=== PATIENT | female | born 1965 | race African-American/Black ===

== ENCOUNTER 2016-07-31 10:54 | Inpatient (IN) ==
[2016-07-31] MEDS ORDERED: PANTOPRAZOLE 40 MG VIAL IV STA (11:45)
[2016-07-31] MEDS ORDERED: ONDANSETRON 4 MG/2 ML VIAL IV STA (11:45)
[2016-07-31] MEDS ORDERED: METOCLOPRAMIDE 10 MG/2 ML VIAL IV STA (11:45)
--- NOTE | 2016-07-31 11:50 | Emergency Department Note ---
Arrival - Arrival Chief Complaint: Abdominal / Flank Pain Stated Complaint: pain in Right arm and down Right side ED Nursing Triage Note: C/O HAVING GENERALIZED ABDOMEN PAIN X 2 DAYS., STATES TOOK SOME GAS EX WITH NO RELEIF, DENIES HAVING NAUSEA., DENIES HAVING DIARRHEA, DENIES HAVING INCREASE TEMP Mode of Arrival: Ambulatory Limitations: Altered Mental Status Source: Family Time Seen by Provider: 07/31/16 11:41 - History of Present Illness HPI Narrative: This 51-year-old black female with MR presents with a 2 day history of mid epigastric and right upper quadrant abdominal pain radiating to the right shoulder and back associated with heartburn, belching, and water brash. She denies nausea, vomiting, chills, or fever. Per the family she does not have a history of gallbladder disease, peptic ulcer disease, pancreatitis, or inflammatory bowel disease. Currently the patient appears in no acute distress. Onset (ago): day(s) (patient presents 2 days post-onset of symptoms) Consistency: constant Severity: mild Severity scale (1-10): 3 Quality: burning Allergies/Adverse Reactions: Allergies Allergy/AdvReac Type Severity Reaction Status Date / Time No Known Allergies Allergy Verified 07/31/16 11:08 Home Medications: Home Medications Medication Instructions Recorded Confirmed Type Insulin Aspart [NovoLOG] 15 unit SUBCUT BIDPC 09/03/15 07/31/16 History Insulin Glargine,Hum.rec.anlog 40 unit SUBCUT BEDTIME 09/03/15 07/31/16 History [Lantus SoloStar] Losartan/Hydrochlorothiazide 1 tablet PO DAILY 07/31/16 07/31/16 History [Losartan-Hctz 100-25 mg Tab] Review of System - Review of System 12 point system: reviewed and no additional remarkable complaints except as stated - Review of System Constitutional: Present: as per HPI Gastrointestinal: Present: as per HPI Medical,Surgical,& Family Hx - Medical History Cardio: History of: Hypertension Endocrine: History of: Diabetes Mellitus (IDDM), Diabetes Mellitus (NIDDM), Dyslipidemia - Social History Smoking Status: Never smoker Frequency of Alcohol Use: None Type of Drug Use: None Exam Physical Examination: GENERAL: Obese black female in no acute distress. HEENT: Normocephalic. No trauma. Moist mucous membranes. EOMI. PERRLA. NECK: Supple. No adenopathy. CARDIAC: Regular. No murmurs. CHEST: Clear to auscultation. No respiratory distress. ABDOMEN: Soft. Very tender right upper quadrant and midepigastrium.. Hypoactive bowel sounds. EXTREMITIES: No trauma. Normal ROM. No pedal edema. SKIN: No diaphoresis. No rash. NEURO: Alert. Neuro intact. No focal deficits. Vital Signs: Vital Signs Temperature 97.7 F 07/31/16 11:04 Pulse Rate 90 07/31/16 11:04 Respiratory Rate 16 07/31/16 11:04 Blood Pressure 186/111 07/31/16 11:04 O2 Sat by Pulse Oximetry 96 07/31/16 11:04 Course - Reevaluation(s) Reevaluation #1: Advised family the need for hospitalization to delineate what is going on in the liver. - Consultations Consultation #1: Discussed with the hospitalist service who will admit for further evaluation and treatment Results - Labs CBC & BMP: 07/31/16 12:00 07/31/16 12:00 Labs: I reviewed the laboratory and noted the significantly elevated liver function studies - Diagnostic Findings Procedure: CT Abdomen and Pelvis: image reviewed by me, report reviewed by me ( paperweight 8 cm posterior lobe mass which possibly could be focal nodular hyperplasia no evidence of adenopathy in the abdominal cavity otherwise), Ultrasound: image reviewed by me, report reviewed by me (abdominal ultrasound reveals no abnormalities including gallstones.) Disposition Clinical Impression: liver mass Case discussed with: patient's family Disposition: Still a Patient Condition: Stable Time of Disposition: 14:51
[2016-07-31] MEDS ORDERED: METOCLOPRAMIDE 10 MG/2 ML VIAL ONE (11:57)
[2016-07-31] MEDS ORDERED: ONDANSETRON 4 MG/2 ML VIAL ONE (11:58)
[2016-07-31] MEDS ORDERED: PANTOPRAZOLE 40 MG VIAL IV ONE (11:58)
[2016-07-31 12:22] LABS: Basophils % 0.4 % (0.0-0.8); Eosinophils # 0.2 10*3/uL (0.0-0.87); Eosinophils % 2.5 % (0.00-10.9); Hematocrit 43.2 VOL% (35.7-47.0); Hemoglobin 13.4 GM/DL (12.0-16.0); Immature Granulocytes % 0.7 %; Immature Granulocytes Absolute 0.05 #; Lymphocytes # 2.6 10*3/uL (1.4-4.0); Mean Corpuscular Hemoglobin 27 PG (27-34); Mean Corpuscular Volume 88.2 FL (87-102); Mean Platelet Volume 10.2 FL (9.6-12.0); Monocytes # 0.5 10*3/uL (0.11-0.8); Monocytes % 7.4 % (1.7-12.7); Neutrophils # 3.9 10*3/uL (1.4-7.4); Platelet Count 260 T/CUMM (130-400); Red Cell Distribution Width 13.7 % (9.3-17.3); White Blood Count 7.3 T/CUMM (4-12)
[2016-07-31 12:54] LABS: Albumin 3.7 G/DL (3.4-5.0); Bilirubin,Total 0.4 MG/DL (0.2-1.0); Calcium 9.8 MG/DL (8.5-10.1); Osmolality,Calculated 289.6 MOS/KG (273-304); Potassium 3.8 MMOL/L (3.5-5.1); Total Protein 7.4 G/DL (6.4-8.3)
--- NOTE | 2016-07-31 13:17 | Ultrasound Report ---
History: Abdominal pain Date: 07/31/2016 Study: Abdominal ultrasound limited to the right upper quadrant Comparison exam: No previous Real-time ultrasound images were captured and archived. The gallbladder is normal in appearance without gallstones or abnormal pericholecystic fluid. There is no gallbladder wall thickening on the static images. There is a negative sonographic Key sign. There is no abnormal biliary dilatation. The common bile duct measures 3.3 mm diameter. The liver, pancreas, and right kidney are normal. The liver measures 13.6 cm in length. The right kidney measures 12.3 cm length. There is hepatopedal flow in the portal vein. Impression: Normal right upper quadrant ultrasound PROCEDURE INTERPRETED AT [facility] DEPARTMENT OF RADIOLOGY Final Report Signed by: Dr. Serenity Patel
--- NOTE | 2016-07-31 14:15 | CT Report ---
History: Abnormal liver function tests. Right upper quadrant abdominal pain. Normal right upper quadrant ULTRASOUND Date: 07/31/2016 Study: CT abdomen and pelvis with IV contrast Comparison exam: No previous abdominal CT Technique: Spiral CT sections were obtained from the lung bases to the pubic symphysis following 100 mL Omnipaque 350 IV. Total DLP measures 2133 mGy*cm. CT abdomen: There is some minor strandy subsegmental atelectasis in the lung bases. There is an 8.8 cm lobular mass posteriorly and superiorly in the right lobe of the liver. This has a central hypodense scar compatible with focal nodular hyperplasia. There is some homogeneous enhancement of this mass otherwise. The liver is otherwise unremarkable except for some mild diffuse fatty infiltration. The gallbladder, bile ducts, spleen, pancreas, adrenal glands, and kidneys are unremarkable. There is bilateral renal excretion without hydronephrosis. There is no aortic aneurysm. The appendix is normal. There is no bowel obstruction. There is no evidence of pneumoperitoneum. There is no lymphadenopathy in the upper abdomen. CT pelvis: There is a hypodense lobular mass measuring 5.9 cm in the fundus of the uterus, extending into the cornual region. There is no abnormal fluid collection or additional pelvic mass. There is no pelvic lymphadenopathy. There is diverticulosis of the colon without lidia diverticulitis. There is a small periumbilical hernia containing fat. Impression: 8.8 cm hepatic mass suggesting focal nodular hyperplasia. 5.9 cm uterine mass, likely uterine leiomyoma. Diverticulosis without lidia diverticulitis PROCEDURE INTERPRETED AT [facility] DEPARTMENT OF RADIOLOGY Final Report Signed by: Dr. Serenity Patel
[2016-07-31] MEDS ORDERED: DEXTROSE 50% 25 GM/50 ML VIAL IV PRN (15:57)
[2016-07-31] MEDS ORDERED: BISACODYL 5 MG TABLET PO PRN (15:57)
[2016-07-31] MEDS ORDERED: ONDANSETRON 4 MG/2 ML VIAL IV PRN (15:57)
[2016-07-31] MEDS ORDERED: ACETAMINOPHEN 325 MG TABLET PO PRN (15:57)
[2016-07-31] MEDS ORDERED: ZALEPLON 5 MG CAPSULE PO PRN (15:57)
[2016-07-31] MEDS ORDERED: GLUCAGON 1 MG VIAL IM PRN (15:57)
--- NOTE | 2016-07-31 16:13 | Hospitalist History & Physical ---
Assessment and Plan - Time spent with patient Time spent with patient: Greater than 30 minutes (1) Liver mass Status: Acute Assessment and plan: CT is compatible with nodular hyperplasia. I will obtain GI consultation. Current Visit: Yes (2) Leiomyoma of body of uterus Status: Acute Assessment and plan: No further evaluation at this time. Current Visit: Yes (3) Diabetes mellitus type 1 Status: Acute Assessment and plan: I will continue her glargine and regular insulin. Current Visit: Yes Qualifiers: Diabetes mellitus complication status: without complication Qualified Code( s): E10.9 - Type 1 diabetes mellitus without complications (4) Hypertension Status: Acute Assessment and plan: I will continue her losartan and hydrochlorthiazide. Current Visit: Yes History of Present Illness Chief complaint: Abdominal pain History of present illness: Ms. Sheikh is a 51 year old female with a 1-2 week history of abdominal pain. She describes the pain as a right sided aching pain that has been present constantly for this time period. She has not been experiencing nausea, vomiting , diarrhea, constipation, weight loss, or fevers. Evaluation in the ED included a CT scan of the abdomen and pelvis demonstrating a large liver mass compatible with nodular hyperplasia and a leiomyoma of the uterus and an abdominal US demonstrating a normal gallbladder and normal pancreas. She is admitted for further evaluation and treatment. Home Medications Medication Instructions Recorded Confirmed Type Insulin Aspart [NovoLOG] 15 unit SUBCUT BIDPC 09/03/15 07/31/16 History Insulin Glargine,Hum.rec.anlog 40 unit SUBCUT BEDTIME 09/03/15 07/31/16 History [Lantus SoloStar] Losartan/Hydrochlorothiazide 1 tablet PO DAILY 07/31/16 07/31/16 History [Losartan-Hctz 100-25 mg Tab] Allergies Allergy/AdvReac Type Severity Reaction Status Date / Time No Known Allergies Allergy Verified 07/31/16 11:08 Medical,Surgical,& Family Hx - Medical History Cardio: History of: Hypertension Endocrine: History of: Diabetes Mellitus (IDDM), Diabetes Mellitus (NIDDM), Dyslipidemia - Social History Smoking Status: Never smoker Frequency of Alcohol Use: None Type of Drug Use: None Exam - Constitutional Vitals: Period Temp Pulse Resp BP Sys/Weiss Pulse Ox Last 24 Hr 97.7 F 90 16 186/111 96 General appearance: no acute distress - Head Head exam: Present: normal inspection - Eye Pupils: Present: [place] - Neck Neck exam: Present: normal inspection - Respiratory Respiratory exam: Present: clear to auscultation bilaterally - Cardiovascular Cardiovascular exam: Present: regular rate and rhythm - GI/Abdominal GI/Abdominal exam: Present: normal bowel sounds, soft, other (nontender, no palpable masses) - Extremities Exam Extremities exam: Present: normal inspection - Neurological Exam Neurological exam: Present: alert, oriented X3, CN II-XII intact, other (no gross motor or sensory deficits) - Skin Skin exam: Present: normal color Results - Labs CBC & BMP: 07/31/16 12:00 07/31/16 12:00 - Diagnostic Findings Procedure: CT Abdomen and Pelvis: report reviewed by me, other (large liver mass c/w nodular hyperplasia and leiomyoma of uterus), Ultrasound: report reviewed by me (normal GB and pancreas)
[2016-07-31] MEDS: INSULIN REGULAR 100 UNIT/ML SUBCUT SCH ×2 (17:50→20:58)
[2016-07-31] MEDS: ENOXAPARIN 40 MG/0.4 ML SYRINGE SUBCUT SCH (18:02)
[2016-07-31] MEDS: INSULIN LISPRO 100 UNIT/ML SUBCUT SCH (18:03)
[2016-07-31] MEDS: INSULIN GLARGINE 100 UNIT/ML SUBCUT SCH (20:58)
--- NOTE | 2016-08-01 07:50 | Hospitalist Progress Note ---
Assessment and Plan (1) Liver mass Status: Acute Assessment and plan: CT is compatible with nodular hyperplasia. GI consult is pending. I will follow GI's recommendations if they think she needs further evaluation. Current Visit: Yes (2) Leiomyoma of body of uterus Status: Acute Assessment and plan: No further evaluation at this time. Current Visit: Yes (3) Diabetes mellitus type 1 Status: Acute Assessment and plan: I will continue her glargine and regular insulin. Her glucose is well controlled on her present regimen. Current Visit: Yes Qualifiers: Diabetes mellitus complication status: without complication Qualified Code( s): E10.9 - Type 1 diabetes mellitus without complications (4) Hypertension Status: Acute Assessment and plan: I will continue her losartan and hydrochlorthiazide. Her BP is well controlled on her present medications. Current Visit: Yes Hospitalist: Subjective Interval history: No new complaints. Exam - Constitutional Vitals: Period Temp Pulse Resp BP Sys/Weiss Pulse Ox Last 24 Hr 97.1 F-97.9 F 83-88 18-20 96-156/64-99 93-98 General appearance: no acute distress - Head Head exam: Present: normal inspection - Neck Neck exam: Present: normal inspection - Respiratory Respiratory exam: Present: clear to auscultation bilaterally - Cardiovascular Cardiovascular exam: Present: regular rate and rhythm - GI/Abdominal GI/Abdominal exam: Present: normal bowel sounds, soft, other (no palpable masses ; nontender.) - Extremities Exam Extremities exam: Present: normal inspection - Skin Skin exam: Present: normal color Results - Labs CBC & BMP: 07/31/16 12:00 07/31/16 12:00
[2016-08-01] MEDS: LOSARTAN/HCTZ 50-12.5 MG TABLET PO SCH (08:56)
[2016-08-01] MEDS: PANTOPRAZOLE 40 MG TABLET PO SCH (08:56)
[2016-08-01] MEDS: INSULIN LISPRO 100 UNIT/ML SUBCUT SCH ×2 (08:57→18:09)
[2016-08-01] MEDS: INSULIN REGULAR 100 UNIT/ML SUBCUT SCH ×4 (08:58→21:21)
--- NOTE | 2016-08-01 12:01 | Gastrointestinal Consult Note ---
Assessment and Plan (1) Focal nodular hyperplasia of liver Status: Acute Assessment and plan: The patient is most likely to have focal nodular hyperplasia-- this diagnosis can typically be made on CAT scan and MRI, just to be completely thorough I will check for a few tumor markers and we will likely reimage the patient down the road some bilateral feel the need to confirm this with biopsy yet. This would produce capsular distention and pain in the right upper quadrant but not the right lower quadrant. Consider doing liver biopsy if any suspicious lesions are seen with the patient returns for follow-up with a potential liver biopsy down the road, if the lesion becomes more suspicious. Current Visit: Yes (2) Right lower quadrant abdominal pain Status: Acute Assessment and plan: As yet the patient does not have an elevated white blood cell count and a CT scan does not appear suspicious for a gross lesion such as appendicitis or diverticulitis. It is certainly possible the patient might have mesenteric ischemia which sometimes produces pain out of proportion with physical exam findings. We will check the patient's lactic acid level to see whether this is elevated. She has a very bizarre affect for someone who is in as much pain as she describes. This certainly may be factitious on her part. We'll continue to observe her and see if the pain progresses or results at this point. I would try and minimize pain medications until we have a clearer understanding of where the pain might be coming from. Current Visit: Yes (3) Diverticulosis large intestine w/o perforation or abscess w/o bleeding Status: Acute Assessment and plan: This was was an incidental findings seen on CT scan. I doubt that it has any bearing on today's pain. She does not have elevations in her white blood cell count. Current Visit: Yes History of Present Illness Chief complaint: acute onset of right lower quadrant greater than right upper quadrant pain History of present illness: Ms. Sheikh is a 51 year old female who has some mild mental slowing and describes a right-sided EGD pain that she describes is 10 out of 10 in intensity starting Tuesday 2 days ago with no improvement on eating, or bowel movements. She is not constipated and has approximately 2 bowel movements per day. She does not have any nausea or vomiting, this does not affect her appetite, she does not typically have diarrhea or constipation, is been no weight loss fevers reflux right red blood per rectum or black tarry bowel movements. CAT scans of the abdomen demonstrated an 8.8 cm hepatic mass with central scarring consistent with focal nodular hyperplasia. There is a 5.9 uterine mass likely leiomyoma and there is diverticulosis without evidence of lidia diverticulitis, the bile duct spleen pancreas and adrenal glands as well as kidneys and gallbladder all appear unremarkable the appendix specifically is mentioned as being normal. There is no gross evidence of bowel obstruction. An ultrasound was also done of her right upper quadrant which was unremarkable, interesting seeing as the CT scan demonstrated the 8.8 cm focal nodular hyperplasia. Her brother does not feel that she is in 10 out of 10 pain, her white blood cell count 7.3 BUN and creatinine are 11 and 0.7, her hematocrit is actually 43.2 with a hemoglobin of 13.4. Home Medications Medication Instructions Recorded Confirmed Type Insulin Aspart [NovoLOG] 15 unit SUBCUT BIDPC 09/03/15 07/31/16 History Insulin Glargine,Hum.rec.anlog 40 unit SUBCUT BEDTIME 09/03/15 07/31/16 History [Lantus SoloStar] Losartan/Hydrochlorothiazide 1 tablet PO DAILY 07/31/16 07/31/16 History [Losartan-Hctz 100-25 mg Tab] Allergies Allergy/AdvReac Type Severity Reaction Status Date / Time No Known Allergies Allergy Verified 07/31/16 11:08 Medical,Surgical,& Family Hx - Medical History Cardio: History of: Hypertension HEENT: History of: Ear Problem (left ear pain) Endocrine: History of: Diabetes Mellitus (IDDM), Diabetes Mellitus (NIDDM), Dyslipidemia Other: No history of: Cancer, Eczema - Family History Family History: Reports;: Family Cancer (mother), Family Diabetes (2 brothers), Family Hypertension (many family members) Denies;: Family Stroke - Social History Smoking Status: Never smoker Frequency of Alcohol Use: None Type of Drug Use: None Review of systems: Constitutional: Denies fever, chills, nausea, and vomiting Eyes: Denies dry eyes, and scleral icterus HENT: Denies headaches Cardiovascular: Denies acute chest pain and claudication Respiratory: Denies shortness of breath, wheezing, and difficulty breathing, denies cough Gastrointestinal: As noted in the HPI Genitourinary: Denies dysuria and hematuria Neurologic: Denies vision loss, and loss of sensation Musculoskeletal: Denies joint swelling, joint stiffness, and muscular weakness Psychiatric: Denies depression and sharmila symptoms, but may have some mild mental slowing. Heme-Lymph: Denies easy bruising, lymph node enlargement or tenderness, night sweats, excessive bleeding Allergies-immunologic: Denies pruritus and rhinorrhea Exam - Constitutional Vitals: Period Temp Pulse Resp BP Sys/Weiss Pulse Ox Last 24 Hr 97.1 F-97.9 F 83-93 18-20 96-156/64-99 93-98 General appearance: no acute distress - Head Head exam: Present: normocephalic - Eye Eye exam: Present: EOMI. Absent: conjunctival injection, scleral icterus Pupils: Present: NJ - Neck Neck exam: Absent: tenderness, thyromegaly - Respiratory Respiratory exam: Present: clear to auscultation bilaterally. Absent: rhonchi, stridor, wheezes - Cardiovascular Cardiovascular exam: Present: regular rate and rhythm. Absent: systolic murmur , tachycardia - GI/Abdominal GI/Abdominal exam: Present: normal bowel sounds, tenderness (the patient appears to have [id number] tenderness in the right lower quadrant greater than right upper quadrant quadrant), soft, other (stool is present brown and guaiac negative, she is minimal stool involved). Absent: guarding, rebound - Extremities Exam Extremities exam: Present: full ROM. Absent: edema - Back Exam Back exam: Present: normal inspection - Neurological Exam Neurological exam: Present: alert, oriented X3, CN II-XII intact. Absent: motor sensory deficit - Psychiatric Psychiatric exam: Present: normal affect, normal mood - Skin Skin exam: Present: warm Results - Labs CBC & BMP: 07/31/16 12:00 07/31/16 12:00
[2016-08-01 15:22] LABS: Cancer Antigen 19-9 25.8 U/ML (0-37); Carcinoembryonic Antigen < 0.5 NG/ML (0.0-5.0)
[2016-08-01 15:25] LABS: AFP Tumor 4.7 NG/ML (0-8)
[2016-08-01] MEDS: ENOXAPARIN 40 MG/0.4 ML SYRINGE SUBCUT SCH (16:18)
[2016-08-01] MEDS: POLYETHYLENE GLYCOL POWDER 17 GM PACK PO SCH (21:19)
[2016-08-01] MEDS: INSULIN GLARGINE 100 UNIT/ML SUBCUT SCH (21:22)
[2016-08-02 07:04] LABS: Basophils % 0.6 % (0.0-0.8); Eosinophils # 0.2 10*3/uL (0.0-0.87); Eosinophils % 2.3 % (0.00-10.9); Hematocrit 42.5 VOL% (35.7-47.0); Hemoglobin 13.2 GM/DL (12.0-16.0); Immature Granulocytes % 0.4 %; Immature Granulocytes Absolute 0.03 #; Lymphocytes # 2.4 10*3/uL (1.4-4.0); Lymphocytes % 35.1 % (21.3-54.2); Mean Corpuscular HGB Conc 31.1 GM/DL (32-36); Mean Corpuscular Hemoglobin 28 PG (27-34); Mean Corpuscular Volume 88.5 FL (87-102); Mean Platelet Volume 10.5 FL (9.6-12.0); Monocytes # 0.6 10*3/uL (0.11-0.8); Monocytes % 8.3 % (1.7-12.7); Neutrophils # 3.6 10*3/uL (1.4-7.4); Neutrophils % 53.3 % (38.7-73.9); Platelet Count 240 T/CUMM (130-400); Red Cell Distribution Width 13.6 % (9.3-17.3); White Blood Count 6.8 T/CUMM (4-12)
[2016-08-02] MEDS: POLYETHYLENE GLYCOL POWDER 17 GM PACK PO SCH ×2 (08:49→20:40)
[2016-08-02] MEDS: INSULIN REGULAR 100 UNIT/ML SUBCUT SCH ×4 (08:53→20:40)
[2016-08-02] MEDS: PANTOPRAZOLE 40 MG TABLET PO SCH (08:53)
[2016-08-02] MEDS: LOSARTAN/HCTZ 50-12.5 MG TABLET PO SCH (08:53)
[2016-08-02] MEDS: INSULIN LISPRO 100 UNIT/ML SUBCUT SCH ×2 (09:39→18:09)
[2016-08-02] MEDS ORDERED: traMADol 50 MG TABLET PO PRN (11:35)
--- NOTE | 2016-08-02 11:38 | Hospitalist Progress Note ---
Assessment and Plan (1) Hypertension Status: Acute Current Visit: Yes (2) Focal nodular hyperplasia of liver Status: Acute Current Visit: Yes (3) Right lower quadrant abdominal pain Status: Acute Assessment and plan: now in RUQ, again no specific cause, will see what else GI has to add. Current Visit: Yes Hospitalist: Subjective Interval history: 51 yo female admitted with RUQ abdominal pain and CT did not reveal acute pathology that could be causing her pain. She rates as 5/10 and denies any relationship to food, no nausea,vomiting or diarrhea. Exam - Constitutional Vitals: Period Temp Pulse Resp BP Sys/Weiss Pulse Ox Last 24 Hr 96.5 F-98.2 F 73-89 18-20 106-143/55-78 97-98 General appearance: no acute distress - Head Head exam: Present: normocephalic, atraumatic - Eye Eye exam: Present: EOMI Pupils: Present: [place] - Respiratory Respiratory exam: Present: clear to auscultation bilaterally - Cardiovascular Cardiovascular exam: Present: regular rate and rhythm - GI/Abdominal GI/Abdominal exam: Present: normal bowel sounds, soft - Extremities Exam Extremities exam: Present: full ROM - Neurological Exam Neurological exam: Present: alert, oriented X3, CN II-XII intact - Skin Skin exam: Present: warm, intact Results - Labs CBC & BMP: 08/02/16 06:55 07/31/16 12:00
--- NOTE | 2016-08-02 15:32 | Gastrointestinal Progress Note ---
Assessment and Plan (1) Focal nodular hyperplasia of liver Status: Acute Assessment and plan: The patient is most likely to have focal nodular hyperplasia-- this diagnosis can typically be made on CAT scan and MRI, just to be completely thorough I will check for a few tumor markers and we will likely reimage the patient down the road some bilateral feel the need to confirm this with biopsy yet. This would produce capsular distention and pain in the right upper quadrant but not the right lower quadrant. Consider doing liver biopsy if any suspicious lesions are seen with the patient returns for follow-up with a potential liver biopsy down the road, if the lesion becomes more suspicious. 08/02/16--patient's tumor markers were all negative, and lactic acid levels within normal limits and CT scan was notable for a perimbilical hernia, focal nodular hyperplasia and no other major findings. The patient feels better today on MiraLAX and acid blocking medication. I offered her an opportunity to get scripts for these medications that she would like to stay and undergo upper endoscopy tomorrow morning before potential discharge. I'll arrange for EGD to occur in the morning. Will likely repeat her CT scan in the future to establish that the focal nodular hyperplasia is unchanging. Current Visit: Yes (2) Right lower quadrant abdominal pain Status: Acute Assessment and plan: As yet the patient does not have an elevated white blood cell count and a CT scan does not appear suspicious for a gross lesion such as appendicitis or diverticulitis. It is certainly possible the patient might have mesenteric ischemia which sometimes produces pain out of proportion with physical exam findings. We will check the patient's lactic acid level to see whether this is elevated. She has a very bizarre affect for someone who is in as much pain as she describes. This certainly may be factitious on her part. We'll continue to observe her and see if the pain progresses or results at this point. I would try and minimize pain medications until we have a clearer understanding of where the pain might be coming from. 08/02/16-- upper endoscopy tomorrow, this appears relatively normal the patient could be discharged to home to follow up in the future for reexamination of the focal nodular hyperplasia. The pain does appear to be more in the right upper quadrant today as had been previously observed. Current Visit: Yes (3) Diverticulosis large intestine w/o perforation or abscess w/o bleeding Status: Acute Assessment and plan: This was was an incidental findings seen on CT scan. I doubt that it has any bearing on today's pain. She does not have elevations in her white blood cell count. Current Visit: Yes Gastroenterology - PN: Subj Interval history: Hospitalist, the pain is back up into the right upper quadrant. This is low- grade but worsened by deep palpation. Exam (Progress Note) - Constitutional Vitals: Period Temp Pulse Resp BP Sys/Weiss Pulse Ox Last 24 Hr 96.5 F-98.2 F 73-99 18-20 106-143/55-76 95-98 General appearance: no acute distress - Head Head exam: Present: normocephalic - Eye Eye exam: Present: EOMI - Respiratory Respiratory exam: Present: clear to auscultation bilaterally. Absent: stridor, wheezes - GI/Abdominal GI/Abdominal exam: Present: normal bowel sounds, tenderness (noted deep palpation in the right upper quadrant, no gross evidence guarding or rebound.), soft. Absent: distended, guarding - Extremities Exam Extremities exam: Present: normal inspection - Neurological Exam Neurological exam: Present: alert, oriented X3, CN II-XII intact. Absent: motor sensory deficit - Psychiatric Psychiatric exam: Present: normal affect, normal mood - Skin Skin exam: Present: warm Results - Labs CBC & BMP: 08/02/16 06:55 07/31/16 12:00
[2016-08-02] MEDS: INSULIN GLARGINE 100 UNIT/ML SUBCUT SCH (20:43)
[2016-08-03] MEDS ORDERED: PROPOFOL 200 MG/20 ML VIAL IV ONE (07:44)
[2016-08-03] MEDS ORDERED: LIDOCAINE 2% 5 ML VIAL ONE (07:44)
--- NOTE | 2016-08-03 07:52 | Operative Note ---
Date of procedure: 08/03/16 Pre-op diagnosis: right upper quadrant pain Post-op diagnosis: other (This patient had a slight erosive gastritis noted around the pyloric channel mostly, biopsies were obtained. It is unclear whether this may be producing her "10 out of 10" right upper quadrant pain/ right lower quadrant pain, but no other etiology seems likely. She states that the Protonix and the MiraLAX helped (the latter for underlying constipation).) Procedure: PROCEDURE: Esophagogastroduodenoscopy (EGD) with cold biopsy for pathology REFERRING PHYSICIAN: Arcenio Elias M.D. INDICATIONS: Vague right upper quadrant pain at times right lower quadrant pain in a patient without significant changes to her CT scan aside from the appearance of fibronodular hyperplasia. The prior H&P was reviewed and interrim changes are as noted: No change in colon from GI consultation 2 days ago ENDOSCOPIST: Robert Brunner MD ENDOSCOPE: Olympus Video 100 System upper endoscope ASA CLASS: 3 EXAM: CV: regular rate and rhythm Respiratory: Clear without wheezes Abdominal: active bowel sounds MEDICATION: Per nursing anesthesia protocol, see their notes PROCEDURE: After discussion of the potential risks and benefits of upper endoscopy, the informed consent was obtained. The patient was then placed in the left lateral decubitus position where sedation was achieved as noted above. Esophageal intubation was performed without difficulty, and the endoscope was advanced through the esophagus, stomach and duodenum. A slow withdrawal was then performed with retroflexion in the stomach for careful inspection of the incisura angularis, fundus and cardia. The scope was then returned to a neutral position and withdrawn through the esophagus. The patient tolerated the procedure well and without complication. BIOPSIES: Gastric antrum/body PHOTOGRAPHS: Obtained FINDINGS: Hypopharynx and Larynx: Normal Esohagoscopy Upper and middle thirds: Normal Lower third normal Esophogastric junctions: Normal without gross evidence of Plummer's, esophagitis, or stricturing Gastroscopy: Cardia/Fundus: 2 cm hiatal hernia noted, fundal polyp noted here as well , biopsied Body: Normal except mild salt and pepper erythema Antrum and pylorus a few erosions noted here, biopsied, mild salt and pepper erythema Duodenoscopy: Bulb normal Second and third portions: Normal IMPRESSION: This patient had a slight erosive gastritis noted around the pyloric channel mostly, biopsies were obtained. It is unclear whether this may be producing her "10 out of 10" right upper quadrant pain/right lower quadrant pain, but no other etiology seems likely. She states that the Protonix and the MiraLAX helped (the latter for underlying constipation). RECOMMENDATIONS: Follow up for biopsy results in 1-2 weeks by phone [phone] Continue anti-gastroesophageal reflux measures (avoid carbonated and acidic beverages, avoid eating within 2 hours of bedtime, avoid tight fitting clothing , and elevate the front bed posts 6 inches prior to sleeping. The patient is unlikely to get much better and has reached the maximal in of itself hospitalization. I would discharge her today and have her follow up in my office in 6 weeks to see how she is doing and to recheck the liver for the presumed focal nodular hyperplasia. If this is gotten bigger at that point we would probably do a liver biopsy to confirm the exact pathology versus continuing to observe as this has a very characteristic radiologic appearance. Prescription for MiraLAX and Protonix written and in the front of the chart. Robert Brunner MD COPY TO: Arcenio Elias M.D. Anesthesia: MAC Surgeon / Physician: Robert Brunner Estimated blood loss: minimal Specimens: other Condition: stable Disposition: post procedure unit ([facility]) Results - Labs CBC & BMP: 08/02/16 06:55 07/31/16 12:00 Discharge Plan - Discharge Medications No Action Insulin Aspart [NovoLOG] 15 unit SUBCUT BIDPC Insulin Glargine,Hum.rec.anlog [Lantus SoloStar] 40 unit SUBCUT BEDTIME Losartan/Hydrochlorothiazide [Losartan-Hctz 100-25 mg Tab] 1 tablet PO DAILY - Follow Up or Referral - Forms/Instructions
--- NOTE | 2016-08-03 08:04 | Gastrointestinal Progress Note ---
Assessment and Plan (1) Focal nodular hyperplasia of liver Status: Acute Assessment and plan: The patient is most likely to have focal nodular hyperplasia-- this diagnosis can typically be made on CAT scan and MRI, just to be completely thorough I will check for a few tumor markers and we will likely reimage the patient down the road some bilateral feel the need to confirm this with biopsy yet. This would produce capsular distention and pain in the right upper quadrant but not the right lower quadrant. Consider doing liver biopsy if any suspicious lesions are seen with the patient returns for follow-up with a potential liver biopsy down the road, if the lesion becomes more suspicious. 08/02/16--patient's tumor markers were all negative, and lactic acid levels within normal limits and CT scan was notable for a perimbilical hernia, focal nodular hyperplasia and no other major findings. The patient feels better today on MiraLAX and acid blocking medication. I offered her an opportunity to get scripts for these medications that she would like to stay and undergo upper endoscopy tomorrow morning before potential discharge. I'll arrange for EGD to occur in the morning. Will likely repeat her CT scan in the future to establish that the focal nodular hyperplasia is unchanging. 08/03/16-- The patient has very mild distal erosive gastritis which was biopsied for Helicobacter pylori, prescription for Protonix written, no other source for pain seen, the patient to be discharged in my opinion follow-up with me in 6 weeks. I would continue her MiraLAX twice daily in the interim. We will likely repeat a CT scan at that time to recheck her focal nodular hyperplasia once more. Current Visit: Yes (2) Right lower quadrant abdominal pain Status: Acute Assessment and plan: As yet the patient does not have an elevated white blood cell count and a CT scan does not appear suspicious for a gross lesion such as appendicitis or diverticulitis. It is certainly possible the patient might have mesenteric ischemia which sometimes produces pain out of proportion with physical exam findings. We will check the patient's lactic acid level to see whether this is elevated. She has a very bizarre affect for someone who is in as much pain as she describes. This certainly may be factitious on her part. We'll continue to observe her and see if the pain progresses or results At this point. I would try and minimize pain medications until we have a clearer understanding of where the pain might be coming from. 08/02/16-- upper endoscopy tomorrow, this appears relatively normal the patient could be discharged to home to follow up in the future for reexamination of the focal nodular hyperplasia. The pain does appear to be more in the right upper quadrant today as had been previously observed. 08/03/16--the patient has mild erosive gastritis as mentioned above. Would suggest discharged today with regimen as noted above. Current Visit: Yes (3) Diverticulosis large intestine w/o perforation or abscess w/o bleeding Status: Acute Assessment and plan: This was was an incidental findings seen on CT scan. I doubt that it has any bearing on today's pain. She does not have elevations in her white blood cell count. Current Visit: Yes Gastroenterology - PN: Subj Interval history: The patient states that her right upper quadrant pain is better during the day but is intensified at night. Otherwise she has no other major complaints. She did undergo endoscopy today. Exam (Progress Note) - Constitutional Vitals: Period Temp Pulse Resp BP Sys/Weiss Pulse Ox Last 24 Hr 97 F-97.9 F 80-115 18-22 129-179/64-108 94-98 General appearance: no acute distress - Head Head exam: Present: normocephalic - Eye Eye exam: Present: EOMI Pupils: Present: [place] - Respiratory Respiratory exam: Present: clear to auscultation bilaterally. Absent: rhonchi, stridor, wheezes - Cardiovascular Cardiovascular exam: Present: regular rate and rhythm - GI/Abdominal GI/Abdominal exam: Present: normal bowel sounds, tenderness (in the right upper quadrant), soft. Absent: distended, guarding, rebound - Neurological Exam Neurological exam: Present: alert, altered (psychomotor slowing) - Psychiatric Psychiatric exam: Present: normal affect, normal mood, other (complains of pain out of proportion with physical expression.) - Skin Skin exam: Present: warm Results - Labs CBC & BMP: 08/02/16 06:55 07/31/16 12:00
--- NOTE | 2016-08-03 08:08 | Anesthesia ---
Anesthesia Post OP - Post Ansesthetic Evaluation Patient seen in post op: Yes Resp: within normal limits CV: within normal limits Mental: within normal limits Temp: within normal limits [id number]: within normal limits Nausea and Vomiting: within normal limits Pain: within normal limits
[2016-08-03] MEDS ORDERED: DEXTROSE 50% 25 GM/50 ML VIAL IV PRN (08:17)
[2016-08-03] MEDS: INSULIN LISPRO 100 UNIT/ML SUBCUT SCH (09:56)
[2016-08-03] MEDS: PANTOPRAZOLE 40 MG TABLET PO SCH (09:58)
[2016-08-03] MEDS: LOSARTAN/HCTZ 50-12.5 MG TABLET PO SCH (09:58)
[2016-08-03] MEDS: POLYETHYLENE GLYCOL POWDER 17 GM PACK PO SCH (09:59)
[2016-08-03] MEDS: INSULIN REGULAR 100 UNIT/ML SUBCUT SCH ×2 (10:09→12:17)
--- NOTE | 2016-08-03 10:41 | Discharge Summary ---
<Nuria Falk - Last Filed: 08/03/16 10:34> Hospital Course - Hospital Course Hospital Course: Ms. Sheikh was admitted on 07/31 with liver mass, Leiomyoma of body of uterus, DM type 1, and HTN. She was continued on her losartan and HCTZ. Dr. Brunner was consulted for GI. She also complained of right lower quadrant abdominal pain. CT did not appear suspicious for a gross lesion such as appendicitis or diverticulitis. CT scans showed an 8.8 cm hepatic mass consistent witwh focal nodular hyperplasia. There is a 5.9 uterine mass likely leiomyoma and there is diverticulosis without evidence of lidia diverticulitis. Ultrasounds RUQ was negative for acute pathology. On 08/03, she was taken to the scope lab for EGD with cold bx. Scope showed "slight erosive gastritis noted around the pyloric channel mostly, bx's obtained". Prescriptions for MiraLAX and Protonix were written and left for the patient for underlying constipation and gastritis. Her vitals and labs are stable to improved and he will be discharged home on appropriate medications and follow up. - Time spent with patient Time with patient DS: Greater than 30 minutes (due to plan, doc and med rec.) Diagnosis - Discharge Diagnosis (1) Diabetes mellitus type 1 Status: Acute (2) Diverticulosis large intestine w/o perforation or abscess w/o bleeding Status: Acute (3) Focal nodular hyperplasia of liver Status: Acute (4) Hypertension Status: Acute (5) Leiomyoma of body of uterus Status: Acute Discharge Plan - Discharge Data Disposition: Disch To Home/Self Care - Discharge Medications New traMADol TAB [Ultram] 50 mg PO Q6H PRN #30 tablet PRN Reason: Abdominal Pain Polyethylene Glycol Powder [Miralax] 17 gm PO BID #30 powder Continue Insulin Aspart [NovoLOG] 15 unit SUBCUT BIDPC Insulin Glargine,Hum.rec.anlog [Lantus SoloStar] 40 unit SUBCUT BEDTIME Losartan/Hydrochlorothiazide [Losartan-Hctz 100-25 mg Tab] 1 tablet PO DAILY - Follow Up or Referral Follow Up: Robert Brunner MD [Physician] - 09/14/16 - Forms/Instructions Exam - Constitutional Vitals: Period Temp Pulse Resp BP Sys/Weiss Pulse Ox Last 24 Hr 97 F-97.9 F 60-115 16-99 129-190/64-108 94-100 Discharge Results Labs on day of discharge: Labs from last 24 hours 08/03/16 08/03/16 08/02/16 09:41 08:35 19:02 POC Glucose 322 H 262 H 323 H 08/02/16 08/02/16 15:29 11:18 POC Glucose 287 H 231 H DS: Provider Date of admission: 07/31/16 15:56 Primary care physician: . No PCP Attending physician on admission: Arcenio Elias Consults: 07/31/16 16:13 Consult to Pharmacy [CONS] Routine Reason for Pharmacy Consult: Adjust Meds Renal Funct 08/02/16 15:26 Consult to Anesthesiology [CONS] Routine Consulting Provider: Reason for Anesthesiology: Pre-op Clearance Discharging clinician: Nuria Falk NP Expected date of discharge: 08/03/16 <Maddy Odonnell - Last Filed: 08/03/16 11:00> Diagnosis - Discharge Diagnosis (1) Hypertension Status: Acute (2) Focal nodular hyperplasia of liver Status: Acute (3) Right lower quadrant abdominal pain Status: Acute Discharge Plan - Discharge Data Condition at Discharge: Stable Discharge Diet: advance to your usual diet Activity: resume usual activities as tolerated Contact your physician if you experience:: fever over 101, Bleeding Exam - Constitutional General appearance: no acute distress - Head Head exam: Present: normocephalic, atraumatic - Eye Eye exam: Present: EOMI Pupils: Present: [place] - ENT ENT exam: Present: normal exam - Neck Neck exam: Present: normal inspection - Respiratory Respiratory exam: Present: clear to auscultation bilaterally - Cardiovascular Cardiovascular exam: Present: regular rate and rhythm - GI/Abdominal GI/Abdominal exam: Present: normal bowel sounds, soft - Extremities Exam Extremities exam: Present: full ROM - Neurological Exam Neurological exam: Present: alert, oriented X3, CN II-XII intact - Psychiatric Psychiatric exam: Present: normal affect, normal mood - Skin Skin exam: Present: warm, intact
[2016-08-03 14:46] VITALS: BP 132/70
--- NOTE | 2016-08-04 10:50 | Pathology Report from [facility] ---
ACCESSION # : [id number] PATIENT NAME : Lainey Sheikh ORDERING DR : Robert Brunner MD CLINICAL HX: RUQ abd pain POST-OP DX: Same SPECIMEN INFO: TAMY GROSS DESCRIPTION: The specimen is received in formalin labeled with the patient 's name and consists of a 1.0 x 0.3 cm aggregate of brandt tissue. Submitted in one cassette. DIAGNOSIS FOR LAINEY SHEIKH: TAMY BIOPSIES: Chronic gastritis. H.pylori not seen on special stain. SERVICE DATE: 08/03/2016 REPORT DATE: 08/04/2016 PATHOLOGIST: Umm Charles M.D. [facility]
== END 2016-08-03 12:55 | disposition home or self-care (01) | DRG 392 ==
LOC: N.ED 10:54 → N.EDINP 15:56 → N.4E 16:33

== ENCOUNTER 2017-09-18 21:42 | Inpatient (IN) ==
[2017-09-18] MEDS ORDERED: SODIUM CHLORIDE 0.9% 1,000 ML IV STA (22:14)
[2017-09-18] MEDS ORDERED: INSULIN REGULAR 100 UNIT/ML IV STA (22:16)
[2017-09-18 22:54] LABS: Basophils # 0.1 10*3/uL (0.0-0.2); Basophils % 0.5 % (0.0-0.8); Eosinophils % 0.2 % (0.00-10.9); Hematocrit 43.4 VOL% (35.7-47.0); Immature Granulocytes % 1.4 %; Immature Granulocytes Absolute 0.14 #; Lymphocytes # 1.8 10*3/uL (1.4-4.0); Lymphocytes % 17.4 % (21.3-54.2); Mean Corpuscular HGB Conc 32.3 GM/DL (32-36); Mean Corpuscular Hemoglobin 28 PG (27-34); Mean Corpuscular Volume 85.4 FL (87-102); Mean Platelet Volume 11.4 FL (9.6-12.0); Monocytes # 1.1 10*3/uL (0.11-0.8); Monocytes % 10.3 % (1.7-12.7); Neutrophils # 7.1 10*3/uL (1.4-7.4); Neutrophils % 70.2 % (38.7-73.9); Platelet Count 359 T/CUMM (130-400); Red Blood Count 5.08 MC/CUMM (3.8-5.5); Red Cell Distribution Width 12.9 % (9.3-17.3); White Blood Count 10.2 T/CUMM (4-12)
[2017-09-18] MEDS ORDERED: INSULIN REGULAR 100 UNIT/ML ONE (22:59)
[2017-09-18 23:01] LABS: Apearance,Urine Slightly Hazy (Clear); Bacteria,Urine Moderate /HPF (Few); Bilirubin,Urine Negative (Negative); Blood, Urine Moderate mg/dL (Negative); Glucose,Urine (UA) >=500 mg/dL (Negative); Hyaline Casts,Urine 1 /LPF (0-3); Ketones,Urine 20 mg/dL (Negative); Mucus,Urine Occasional /LPF (Occasional); Nitrite,Urine Negative (Negative); Protein,Urine Negative; RBC,Urine 7 /HPF (0-4); Squamous Epithelial Cell,Urine Occasional /HPF (0-10); Urine Color Yellow (Yellow); Urine Specific Gravity 1.013 (1.001-1.035); Urine Urobilinogen < 2.0 EU/DL (0.2-1.0); WBC,Urine 141 /HPF (0-6)
[2017-09-18 23:22] LABS: Albumin 3.8 G/DL (3.4-5.0); Bilirubin,Total 0.9 MG/DL (0.2-1.0); Osmolality,Calculated 289.5 MOS/KG (273-304); Potassium 4.1 MMOL/L (3.5-5.1); Total Protein 7.9 G/DL (6.4-8.3)
[2017-09-19] MEDS ORDERED: cefTRIAXone 1,000 MG in SODIUM CHLORIDE 0.9% 100 ML IV STA (00:09)
[2017-09-19] MEDS ORDERED: INSULIN REGULAR 100 UNIT/ML IV STA (00:09)
[2017-09-19] MEDS ORDERED: SODIUM CHLORIDE 0.9% 1,000 ML IV STA (00:17)
[2017-09-19] MEDS ORDERED: cefTRIAXone 1,000 MG VIAL ONE (00:37)
[2017-09-19] MEDS ORDERED: INSULIN REGULAR 100 UNIT/ML ONE (00:38)
[2017-09-19] MEDS ORDERED: MAGNESIUM SULF RIDER 2 GM in PREMIX 1 EACH IV PRN (00:39)
[2017-09-19] MEDS ORDERED: DEXTROSE 50% 25 GM/50 ML VIAL IV PRN ×2 (00:39)
[2017-09-19] MEDS ORDERED: MAGNESIUM SULF RIDER 4 GM in PREMIX 1 EACH IV PRN (00:39)
[2017-09-19] MEDS ORDERED: SODIUM CHLORIDE 0.9% IV PRN (00:39)
[2017-09-19] MEDS ORDERED: SODIUM CHLORIDE 0.9% 1,000 ML IV ONE (00:39)
[2017-09-19] MEDS ORDERED: SODIUM PHOSPHATE IV PRN (00:39)
[2017-09-19] MEDS ORDERED: SODIUM BICARB INJ 100 MEQ in STERILE WATER INJ 400 ML IV PRN (00:39)
[2017-09-19] MEDS ORDERED: INSULIN REGULAR DRIP 100 ML IV SCH (01:00)
[2017-09-19] MEDS: SODIUM CHLORIDE 0.9% 1,000 ML IV SCH ×2 (02:50→04:08)
[2017-09-19 03:52] LABS: ABG Base Excess -3.2 MMOL/L (-2.5-2.5); ABG HCO3 21.7 MMOL/L (20-26); ABG Oxygen Saturation 96.9 % (95-100); ABG PCO2 37.1 MM HG (35-48); ABG PH 7.372 (7.35-7.45); ABG PO2 84.7 MM HG (80-95); ABG TCO2 18.8 MMOL/L (23-27); Allen Test Positive; Pt O2 Delivery Device Room Air
[2017-09-19 04:27] LABS: Basophils % 0.6 % (0.0-0.8); Eosinophils # 0.1 10*3/uL (0.0-0.87); Eosinophils % 1.4 % (0.00-10.9); Hematocrit 38.2 VOL% (35.7-47.0); Hemoglobin 12.5 GM/DL (12.0-16.0); Immature Granulocytes % 1.3 %; Immature Granulocytes Absolute 0.09 #; Lymphocytes # 1.5 10*3/uL (1.4-4.0); Lymphocytes % 21.6 % (21.3-54.2); Mean Corpuscular HGB Conc 32.7 GM/DL (32-36); Mean Corpuscular Hemoglobin 27 PG (27-34); Mean Corpuscular Volume 83.4 FL (87-102); Mean Platelet Volume 11.7 FL (9.6-12.0); Monocytes # 0.5 10*3/uL (0.11-0.8); Monocytes % 7.5 % (1.7-12.7); Neutrophils # 4.8 10*3/uL (1.4-7.4); Neutrophils % 67.6 % (38.7-73.9); Platelet Count 235 T/CUMM (130-400); Red Blood Count 4.58 MC/CUMM (3.8-5.5); Red Cell Distribution Width 12.9 % (9.3-17.3)
[2017-09-19 04:56] LABS: Eosinophils 2 % (0-10); Giant Platelets Few; Hypochromasia 1+; Lymphocytes 20 % (20-55); Platelet Estimate Adequate; Segmented Neutrophils 73 % (50-85); Total Cells Counted 100
[2017-09-19 05:02] LABS: Calcium 8.5 MG/DL (8.5-10.1); Osmolality,Calculated 285.8 MOS/KG (273-304); Potassium 3.1 MMOL/L (3.5-5.1)
[2017-09-19 05:05] LABS: Risk Ratio 5.32; VLDL CHOLESTEROL 44.4 MG/DL
[2017-09-19] MEDS ORDERED: POTASSIUM CHLORIDE INJ 40 MEQ in SODIUM CHLORIDE 0.9% 380 ML IV SCH (05:30)
[2017-09-19] MEDS ORDERED: DEXTROSE 5% NACL 0.9% 1,000 ML IV SCH ×2 (05:30→06:30)
[2017-09-19] MEDS ORDERED: SODIUM CHLORIDE 0.9% 1,000 ML IV SCH (05:39)
[2017-09-19 09:27] LABS: Calcium 8.7 MG/DL (8.5-10.1); Osmolality,Calculated 282.4 MOS/KG (273-304); Potassium 3.3 MMOL/L (3.5-5.1)
[2017-09-19] MEDS ORDERED: DEXT 5% NACL 0.45% KCL 20 MEQ 20 MEQ/1,000 ML BAG IV SCH (10:00)
[2017-09-19] MEDS: INSULIN GLARGINE 100 UNIT/ML SUBCUT SCH (10:16)
[2017-09-19] MEDS: hydroCHLOROthiazide 25 MG TABLET PO SCH (10:17)
[2017-09-19] MEDS ORDERED: SODIUM CHLORIDE 0.45% 1,000 ML IV SCH (10:30)
[2017-09-19 13:13] LABS: Calcium 8.5 MG/DL (8.5-10.1); Osmolality,Calculated 282.5 MOS/KG (273-304); Potassium 3.7 MMOL/L (3.5-5.1)
[2017-09-19] MEDS ORDERED: LOSARTAN/HCTZ 50-12.5 MG TABLET PO SCH (13:15)
[2017-09-19] MEDS: SODIUM CHLORIDE 0.45% 1,000 ML IV SCH (17:08)
[2017-09-19 17:18] LABS: Calcium 8.5 MG/DL (8.5-10.1); Osmolality,Calculated 281.8 MOS/KG (273-304); Potassium 3.6 MMOL/L (3.5-5.1)
[2017-09-19] MEDS: INSULIN LISPRO 100 UNIT/ML SUBCUT SCH (20:12)
[2017-09-19] MEDS: cefTRIAXone 1,000 MG in SYRINGE 1 EACH IV SCH (20:12)
[2017-09-19 21:18] LABS: Calcium 8.8 MG/DL (8.5-10.1); Osmolality,Calculated 279.7 MOS/KG (273-304); Potassium 3.3 MMOL/L (3.5-5.1)
[2017-09-19] MEDS: POTASSIUM CHLORIDE RIDER 10 MEQ in PREMIX 1 EACH IV PRN ×3 (22:06→23:44)
[2017-09-20] MEDS: POTASSIUM CHLORIDE RIDER 10 MEQ in PREMIX 1 EACH IV PRN ×4 (00:46→09:34)
[2017-09-20] MEDS: SODIUM CHLORIDE 0.45% 1,000 ML IV SCH ×3 (00:47→18:04)
[2017-09-20 05:45] LABS: Basophils # 0.1 10*3/uL (0.0-0.2); Basophils % 0.8 % (0.0-0.8); Eosinophils # 0.3 10*3/uL (0.0-0.87); Eosinophils % 4.2 % (0.00-10.9); Hematocrit 41.1 VOL% (35.7-47.0); Hemoglobin 13.8 GM/DL (12.0-16.0); Immature Granulocytes % 1.2 %; Immature Granulocytes Absolute 0.08 #; Lymphocytes # 2.4 10*3/uL (1.4-4.0); Lymphocytes % 36.2 % (21.3-54.2); Mean Corpuscular HGB Conc 33.6 GM/DL (32-36); Mean Corpuscular Hemoglobin 27 PG (27-34); Mean Corpuscular Volume 81.5 FL (87-102); Mean Platelet Volume 11.3 FL (9.6-12.0); Monocytes # 0.7 10*3/uL (0.11-0.8); Monocytes % 10.2 % (1.7-12.7); Neutrophils # 3.1 10*3/uL (1.4-7.4); Neutrophils % 47.4 % (38.7-73.9); Platelet Count 280 T/CUMM (130-400); Red Blood Count 5.04 MC/CUMM (3.8-5.5); Red Cell Distribution Width 13.2 % (9.3-17.3); White Blood Count 6.6 T/CUMM (4-12)
[2017-09-20 06:11] LABS: Calcium 9.1 MG/DL (8.5-10.1); Osmolality,Calculated 270.8 MOS/KG (273-304); Potassium 3.4 MMOL/L (3.5-5.1)
[2017-09-20] MEDS: INSULIN LISPRO 100 UNIT/ML SUBCUT SCH ×4 (07:36→21:04)
[2017-09-20] MEDS: cefTRIAXone 1,000 MG in SYRINGE 1 EACH IV SCH (08:06)
[2017-09-20] MEDS: INSULIN GLARGINE 100 UNIT/ML SUBCUT SCH (08:07)
[2017-09-20] MEDS: hydroCHLOROthiazide 25 MG TABLET PO SCH (08:08)
[2017-09-21] MEDS: SODIUM CHLORIDE 0.45% 1,000 ML IV SCH (02:08)
[2017-09-21 06:26] LABS: Calcium 8.7 MG/DL (8.5-10.1); Osmolality,Calculated 279.4 MOS/KG (273-304); Potassium 3.5 MMOL/L (3.5-5.1)
[2017-09-21] MEDS: PANTOPRAZOLE 40 MG TABLET PO SCH ×2 (09:28→20:13)
[2017-09-21] MEDS: INSULIN LISPRO 100 UNIT/ML SUBCUT SCH ×4 (09:28→20:03)
[2017-09-21] MEDS: hydroCHLOROthiazide 25 MG TABLET PO SCH (09:28)
[2017-09-21] MEDS: INSULIN GLARGINE 100 UNIT/ML SUBCUT SCH (09:29)
[2017-09-21] MEDS: cefTRIAXone 1,000 MG in SYRINGE 1 EACH IV SCH (09:30)
[2017-09-22] MEDS: INSULIN GLARGINE 100 UNIT/ML SUBCUT SCH (08:42)
[2017-09-22] MEDS: cefTRIAXone 1,000 MG in SYRINGE 1 EACH IV SCH (08:42)
[2017-09-22] MEDS: INSULIN LISPRO 100 UNIT/ML SUBCUT SCH ×4 (08:42→20:16)
[2017-09-22] MEDS: PANTOPRAZOLE 40 MG TABLET PO SCH ×2 (08:43→20:16)
[2017-09-22] MEDS: hydroCHLOROthiazide 25 MG TABLET PO SCH (08:43)
[2017-09-22] MEDS: AMOXICILLIN/CLAV 500 MG TABLET PO SCH ×2 (10:15→20:16)
[2017-09-23] MEDS: PANTOPRAZOLE 40 MG TABLET PO SCH (09:02)
[2017-09-23] MEDS: AMOXICILLIN/CLAV 500 MG TABLET PO SCH (09:02)
[2017-09-23] MEDS: hydroCHLOROthiazide 25 MG TABLET PO SCH (09:03)
[2017-09-23] MEDS: INSULIN LISPRO 100 UNIT/ML SUBCUT SCH ×2 (09:04→11:30)
[2017-09-23] MEDS: INSULIN GLARGINE 100 UNIT/ML SUBCUT SCH (09:30)
[2017-09-23 11:05] VITALS: BP 131/78
== END 2017-09-23 11:30 | disposition home or self-care (01) | DRG 637 ==
LOC: N.ED 21:42 → SUATTDRO 09-19 00:39 → N.EDINP 09-19 00:39 → N.CC 09-19 02:27 → N.4E 09-20 13:42
PROVIDERS: ADMIT Internal Medicine; ATTEND Internal Medicine Cardiovascular Disease